=== PATIENT | male | born 1955 | race Two or more races ===

== ENCOUNTER 2018-06-26 10:36 | Emergency (ER) | payer SELFPAY ==
[2018-06-26 10:44] VITALS: RESP 18; TEMP 98.2; O2SAT 98
--- NOTE | 2018-06-26 10:58 | ED PDOC ---
Arrival/HPI - General Chief Complaint: Abnormal Skin Integrity Time Seen by Provider: 06/26/18 10:48 Historian: Patient - History of Present Illness Narrative History of Present Illness (Text): 06/26/18 10:56 62 y/o male, pmh including htn, nkda, c/o abscess x 1 week. Pt. has rt. trapezius abscess x 1 week, growing, no difficulty or pain moving the neck or rt. shoulder joint region, no numbness or tingling, no headache or night sweat, no rash, no dizziness, no change in vision, no numbness or tingling, no other medical or psychological complaints. Past Medical History - Provider Review Nursing Documentation Reviewed: Yes - Cardiac Hx Hypertension: Yes - Psychiatric Hx Substance Use: No Family/Social History - Physician Review Nursing Documentation Reviewed: Yes Family/Social History: Unknown Family HX Smoking Status: Current Some Days Smoker Hx Alcohol Use: No Hx Substance Use: No Allergies/Home Meds Allergies/Adverse Reactions: Allergies No Known Allergies Allergy (Verified 06/26/18 10:44) Home Medications: Home Meds Medication Instructions Recorded Confirmed Doxycycline Hyclate [Doryx] 100 mg PO BID 06/26/18 06/26/18 Ibuprofen [Motrin Tab] 800 mg PO TID 06/26/18 06/26/18 Olmesartan/Hydrochlorothiazide 1 tab PO DAILY 06/26/18 06/26/18 [Benicar Hct 40-12.5 mg Tablet] hydrALAZINE [Apresoline] 25 mg PO BID 06/26/18 06/26/18 Review of Systems - Review of Systems Constitutional: absent: Fatigue, Fevers Eyes: absent: Vision Changes ENT: absent: Hearing Changes Respiratory: absent: SOB, Cough Cardiovascular: absent: Chest Pain Gastrointestinal: absent: Abdominal Pain, Diarrhea, Nausea, Vomiting Musculoskeletal: absent: Arthralgias, Back Pain Skin: Skin Lesions, Abscess, Cellulitis. absent: Rash, Pruritis, Laceration, Ulcer Neurological: absent: Headache, Dizziness Psychiatric: absent: Anxiety, Depression, Suicidal Ideation Physical Exam Vital Signs Reviewed: Yes Vital Signs Temp Pulse Resp BP Pulse Ox 06/26/18 10:41 98.2 F 94 H 18 155/97 H 98 Temperature: Afebrile Blood Pressure: Hypertensive Pulse: Regular Respiratory Rate: Normal Appearance: Positive for: Well-Appearing, Non-Toxic, Comfortable Pain Distress: Mild Mental Status: Positive for: Alert and Oriented X 3 - Systems Exam Head: Present: Atraumatic, Normocephalic Pupils: Present: PERRL Extroacular Muscles: Present: EOMI Conjunctiva: Present: Normal Mouth: Present: Moist Mucous Membranes Neck: Present: Normal Range of Motion, Trachea Midline. No: Meningeal Signs, MIDLINE TENDERNESS, Paraspinal Tenderness, Lymphadenopathy Respiratory/Chest: Present: Clear to Auscultation, Good Air Exchange. No: Respiratory Distress, Accessory Muscle Use, Wheezes, Decreased Breath Sounds, Rales, Retracting, Rhonchi, Tachypneic, Tender to Palpation Cardiovascular: Present: Regular Rate and Rhythm, Normal S1, S2. No: Murmurs Abdomen: Present: Normal Bowel Sounds. No: Tenderness, Distention, Peritoneal Signs, Rebound, Guarding, McBurney's Point Tender, Rovsing's Sign Present Back: Present: Normal Inspection. No: CVA Tenderness, Midline Tenderness, Paraspinal Tenderness, Pain with Leg Raise, Decubitus Ulcer Upper Extremity: Present: Normal Inspection, Normal ROM, NORMAL PULSES, Neurovascularly Intact, Capillary Refill < 2s, Norm 2-Pt Discrimination. No: Cyanosis, Edema, Tenderness, Swelling, Erythema, Temperature Abnormalties, Deformity Lower Extremity: Present: Normal Inspection. No: Edema Neurological: Present: GCS=15, CN II-XII Intact, Speech Normal Skin: Present: Warm, Dry, Normal Color, Abscess (Rt. trapezius region visible approx. 3cm diameter cellulitis on top of the approx 4.5cm diameter fluctuant abscess with no restreaking, no paraspinal joint or rt. shoulder joint involved. ). No: Rashes Psychiatric: Present: Alert, Oriented x 3, Normal Insight, Normal Concentration Medical Decision Making ED Course and Treatment: 06/26/18 10:58 -clindamycin -I&D 06/26/18 11:13 Procedure: Incision & Drainage Performed by the emergency provider Indication: Abscess Location: Rt. posterior trapezius Preparation: The area was prepped and draped in the usual sterile fashion and was cleansed with 1000cc saline, clean with betadine. Local infiltration of Lidocaine 1% with 1cc was used for anesthesia. Procedure: The most fluctuant portion of the abscess was incised with a #11 scalpel. Approximately 3 mL of purulant abscess was obtained. The abscess was packed 1/4". A dressing was applied by the RN. Post-Procedure: On exam the abscess is notably less fluctuant. The patient tolerated the procedure well, and there were no complications. 06/26/18 11:15 -Discharge home with clindamycin, tylenol for pain, keep the dressing dry and clean, packing needs to be change and the wound needs to be checked in 2 days, see your own pmd and general surgeon within 3 days, return to the ER for any new or worsening signs or symptoms. - Medication Orders Current Medication Orders: Clindamycin HCl (Cleocin) 300 mg PO STAT STA; Protocol Stop: 06/26/18 10:53 - PA / [employer] / Resident Statement / has reviewed & agrees with the documentation as recorded. Disposition/Present on Arrival - Present on Arrival Any Indicators Present on Arrival: No History of DVT/PE: No History of Uncontrolled Diabetes: No Urinary Catheter: No History of Decub. Ulcer: No History Surgical Site Infection Following: None - Disposition Have Diagnosis and Disposition been Completed?: Yes Diagnosis: Cellulitis, Abscess Disposition Time: 10:59 Patient Plan: Discharge Condition: IMPROVED Discharge Instructions (ExitCare): Cellulitis (ED) Additional Instructions: -Discharge home with clindamycin, tylenol for pain, keep the dressing dry and clean, packing needs to be change and the wound needs to be checked in 2 days, see your own pmd and general surgeon within 3 days, return to the ER for any new or worsening signs or symptoms. Prescriptions: Acetaminophen [Tylenol] 2 cap PO QID PRN #30 capsule PRN Reason: Other Clindamycin [Cleocin] 300 mg PO TID #30 cap Referrals: Brent Paz MD [Staff Provider] - Follow up with primary [facility] [place] [Outside] - Follow up with primary Forms: [facility] (Haitian), WORK NOTE
[2018-06-26 12:48] VITALS: BP 146/87; PULSE 88
== END 2018-06-26 11:38 | disposition home or self-care (01) ==
LOC: ED 10:36
DX: L02.413 Cutaneous abscess of right upper limb (principal); L03.113 Cellulitis of right upper limb; I10 Essential (primary) hypertension